=== PATIENT | female | born 1930 | race Hispanic/Latino ===

== ENCOUNTER 2017-11-02 15:17 | Inpatient (IN) | payer MEDICARE ==
[2017-11-02 15:17] VITALS: BMI 21.2
[2017-11-02] MEDS ORDERED: Albuterol-Ipratrop 3 mg / 0.5 (3 ml) UD INH STA ×2 (16:15→17:39)
[2017-11-02] MEDS ORDERED: MethylPREDNISolone 40 mg Vial IVP ONE (16:15)
--- NOTE | 2017-11-02 16:15 | ED PDOC ---
HPI: SOB/CHF/COPD Time Seen by Provider: 11/02/17 15:34 Chief Complaint (Nursing): Shortness Of Breath Chief Complaint (Provider): Shortness of breath History Per: Patient History/Exam Limitations: no limitations Onset/Duration Of Symptoms: Days Current Symptoms Are (Timing): Still Present Quality: Tightness Associated Symptoms: denies: Bloody Cough Additional History Per: Family Additional Complaint(s): 87yo female with no known past medical history, comes to ER for evaluation of shortness of breath, chest tightness and cough, ongoing for the past several days. Patient reports she has not had a doctor's visit in the past 10 years. Per family, patient smokes 3 packs per day, lives alone and has been progressively more weak. The patient denies any weight loss, hemoptysis, fever, or chills. Otherwise, she offers no additional medical complaints. PMD: None provided Past Medical History Reviewed: Historical Data, Nursing Documentation, Vital Signs Vital Signs: Last Vital Signs Temp 97.7 F 11/05/17 12:27 Pulse 90 11/05/17 12:27 Resp 18 11/05/17 12:27 BP 138/74 11/05/17 12:27 Pulse Ox 94 L 11/05/17 12:27 - Medical History PMH: No Chronic Diseases, Diverticulitis - Family History Family History: States: No Known Family Hx, Unknown Family Hx - Living Arrangements Living Arrangements: Alone - Social History Current smoker - smoking cessation education provided: Yes SMOKER/PACKS PER DAY:: 3 Alcohol: None - Home Medications Home Medications: Ambulatory Orders Medication Instructions Recorded Albuterol HFA [Ventolin HFA 90 2 puff IH [id number] #1 inhaler 11/05/17 mcg/actuation (8 g)] Nicotine [Nicotine Patch] 1 each TD DAILY #30 patch.td24 11/05/17 Tiotropium [Spiriva] 18 mcg IH DAILY #30 cap 11/05/17 predniSONE [predniSONE Tab] 5 mg PO DAILY #10 tab 11/05/17 - Allergies Allergies/Adverse Reactions: Allergies Allergy/AdvReac Type Severity Reaction Status Date / Time No Known Allergies Allergy Verified 11/02/17 15:25 Review of Systems ROS Statement: Except As Marked, All Systems Reviewed And Found Negative Constitutional: Negative for: Fever, Chills Cardiovascular: Positive for: Other (chest tightness) Respiratory: Positive for: Cough, Shortness of Breath. Negative for: Hemoptysis Physical Exam - Reviewed Nursing Documentation Reviewed: Yes Vital Signs Reviewed: Yes - Physical Exam Appears: Positive for: Non-toxic Head Exam: Positive for: ATRAUMATIC, NORMAL INSPECTION, NORMOCEPHALIC Skin: Positive for: Normal Color Eye Exam: Positive for: Normal appearance Neck: Positive for: Supple Cardiovascular/Chest: Positive for: Regular Rate, Rhythm, Chest Non Tender Respiratory: Positive for: Decreased Breath Sounds, Accessory Muscle Use (mild) , Wheezing (bilateral), Other (speaking in partial sentences with mild accessory muscle use and retractions.) Pulses-Radial (L): 3+/4+ Pulses-Radial (R): 3+/4+ Gastrointestinal/Abdominal: Positive for: Normal Exam, Soft. Negative for: Tenderness Back: Positive for: Other (kyphosis) Extremity: Positive for: Normal ROM. Negative for: Pedal Edema Neurologic/Psych: Positive for: Alert, Oriented. Negative for: Motor/Sensory Deficits - Laboratory Results Result Diagrams: 11/03/17 05:55 11/03/17 05:55 - ECG O2 Sat by Pulse Oximetry: 95 (RA) Pulse Ox Interpretation: Normal Medical Decision Making Medical Decision Making: Impression: Likely COPD exacerbation, without formal diagnosis to date given lack of primary care Plan: -- Labs -- EKG -- Chest x-ray -- Duoneb 3ml INH -- Solumedrol 60mg IVP labs reviewed clinically unremarkable CXR reveals chronic appearing changes as compared to 2017 CXR Required additional duoneb for mild hypoxia and retractions Admit tele for respiratory distress Hasnt seen PMD in 5+ yrs but family wishes to re-establish with Dr Cooper since leaves close. Call placed to Dr Cooper group and resident informed. Care transferred 6p Scribe Attestation: Documented by Chelle Mcginnis, acting as a scribe for Daryn Snow DO Provider Scribe Attestation: All medical record entries made by the Scribe were at my direction and personally dictated by me. I have reviewed the chart and agree that the record accurately reflects my personal performance of the history, physical exam, medical decision making, and the department course for this patient. I have also personally directed, reviewed, and agree with the discharge instructions and disposition. Disposition - Clinical Impression Clinical Impression: Respiratory failure, COPD exacerbation - Patient ED Disposition Is Patient to be Admitted: Yes - Disposition Disposition Time: 17:52 Condition: GOOD
[2017-11-02] MEDS ORDERED: MethylPREDNISolone 40 mg Vial ONE (16:22)
[2017-11-02] MEDS ORDERED: Albuterol-Ipratrop 3 mg / 0.5 (3 ml) UD ONE ×2 (16:22→18:03)
[2017-11-02 16:54] LABS: BASO % 0.5 % (0.0-2.0); EOS # 0.2 K/uL (0.0-0.7); HEMOGLOBIN 14.5 g/dL (12.0-16.0); LYMPH # 1.6 K/uL (1.0-4.3); LYMPH % 21.6 % (20.0-40.0); MEAN CORPUSCULAR HEMOGLOBIN 29.4 pg (27.0-31.0); MEAN CORPUSCULAR HGB CONC 33.8 g/dL (33.0-37.0); MEAN PLATELET VOLUME 8.3 fl (7.2-11.7); MONO # 0.6 K/uL (0.0-0.8); MONO % 8.2 % (0.0-10.0); NEUT # 5.2 K/uL (1.8-7.0); NEUT % 67.7 % (50.0-75.0); NRBC % 0.1 % (0.0-0.0); RBC 4.93 Mil/uL (3.80-5.20); RED CELL DISTRIBUTION WIDTH 13.6 % (11.5-14.5); WHITE BLOOD COUNT 7.6 K/uL (4.8-10.8)
[2017-11-02 17:04] LABS: ALB/GLOB RATIO 1.2 (1.0-2.1); ALBUMIN 4.2 g/dL (3.5-5.0); ALT/SGPT 22 U/L (9-52); AST/SGOT 22 U/L (14-36); BLOOD UREA NITROGEN 17 mg/dl (7-17); CALCIUM 9.2 mg/dL (8.4-10.2); GFR AFRICAN-AMERICAN > 60; GFR NON-AFRICAN AMERICAN > 60
[2017-11-02 17:15] LABS: B-TYPE NATRIURETIC PEPTIDE 89.6 pg/ml (0-900)
--- NOTE | 2017-11-02 17:49 | RAD ---
Date of service: 11/02/2017 HISTORY: chest pain/ r/o infiltrate COMPARISON: Comparison is made to the previous study dated 05/13/2026 T TECHNIQUE: Chest PA and lateral FINDINGS: LUNGS: No evidence of new infiltrate or consolidation in the lungs PLEURA: No significant pleural effusion identified. No pneumothorax apparent. CARDIOVASCULAR: Normal. OSSEOUS STRUCTURES: Severe diffuse osteoporosis is again noted VISUALIZED UPPER ABDOMEN: Normal. OTHER FINDINGS: None. IMPRESSION: No active disease. Diffuse osteoporosis
--- NOTE | 2017-11-02 18:59 | CP.PCM.HP ---
History of Present Illness - History of Present Illness History of Present Illness: Hx taken from patient and patient's daughter PMD: Dr Duran 87 y/o F with PMhx of diverticulosis, s/p segmental colon resection around 20 years ago and heavy smoker(3 packs/day for more than 30 years) was brought to ER because of worsening SOB with minimal exertion. Patient lives alone and has not seen her PMD in many years. She admits chronic SOB and wet cough but for the past 4-5 days have worsened. Denies fever, CP, palpitations, weakness, dizziness. Patient is not on any medications at home. Also admits diarrhea 3-4 NBNM BM since Yesterday, liquid. Denies abd pain. Denies recent traveling or sick contacts. At the time we examine the patient she "feels much better" she is in not acute distress, speaking in full sentences and eating dinner. ED course PE: Wheezes, O2sat 92 CBC unremarkale CMP: Bicarb 33 rest WNL Tropx1 and ProBnp normal CXR: No active disease. Diffuse osteoporosis Duonebs x2 Solumedrol 60 mg once Nicotine patch placed PMHx: Diverticulitis with segmental colon resection SxHx: As above SHx: Heavy smoker of 3 packs/day for more than 30 years Meds: None Allergies: NKDA Present on Admission - Present on Admission Any Indicators Present on Admission: No Review of Systems - Review of Systems All systems: reviewed and no additional remarkable complaints except (Described on HPI) Past Patient History - Past Medical History & Family History Past Medical History?: Yes - Past Social History Smoking Status: Heavy Smoker > 10 Cigarettes Daily - PULMONARY Hx Respiratory Disorders: Yes Hx Bronchitis: Yes - NEUROLOGICAL Hx Neurological Disorder: No - HEENT Hx HEENT Problems: No - RENAL Hx Chronic Kidney Disease: No - ENDOCRINE/METABOLIC Hx Endocrine Disorders: No - HEMATOLOGICAL/ONCOLOGICAL Hx Blood Disorders: No - INTEGUMENTARY Hx Dermatological Problems: No - GASTROINTESTINAL Hx Diverticulitis: Yes - GENITOURINARY/GYNECOLOGICAL Hx Genitourinary Disorders: No - PSYCHIATRIC Hx Substance Use: No - SURGICAL HISTORY Hx Surgeries: Yes Other/Comment: colon resection - ANESTHESIA Hx Anesthesia: Yes Hx Anesthesia Reactions: No Hx Malignant Hyperthermia: No Meds Allergies/Adverse Reactions: Allergies Allergy/AdvReac Type Severity Reaction Status Date / Time No Known Allergies Allergy Verified 11/02/17 15:25 Physical Exam - Constitutional Appears: Non-toxic, No Acute Distress - Head Exam Head Exam: ATRAUMATIC, NORMAL INSPECTION - Eye Exam Eye Exam: EOMI Pupil Exam: PERRL - ENT Exam ENT Exam: Mucous Membranes Moist, Normal Exam - Respiratory Exam Respiratory Exam: Decreased Breath Sounds, Wheezes (Scattered), NORMAL BREATHING PATTERN. absent: Rales, Respiratory Distress - Cardiovascular Exam Cardiovascular Exam: Irregular Rhythm, +S1, +S2. absent: Gallop - GI/Abdominal Exam GI & Abdominal Exam: Normal Bowel Sounds. absent: Distended, Firm, Guarding, Tenderness - Extremities Exam Extremities exam: Negative for: calf tenderness - Back Exam Back exam: absent: CVA tenderness (L), CVA tenderness (R) - Neurological Exam Neurological exam: Alert, Normal Gait, Oriented x3 - Psychiatric Exam Psychiatric exam: Normal Affect, Normal Mood - Skin Skin Exam: Intact, Normal Color, Warm Results - Vital Signs Recent Vital Signs: Last Vital Signs Temp 99.3 F 11/02/17 15:25 Pulse 90 11/02/17 15:25 Resp 20 11/02/17 15:30 BP 153/89 H 11/02/17 15:25 Pulse Ox 95 11/02/17 17:52 - Labs Result Diagrams: 11/02/17 16:47 11/02/17 16:47 Labs: Laboratory Results - last 24 hr 11/02/17 11/02/17 16:47 16:47 WBC 7.6 RBC 4.93 Hgb 14.5 Hct 42.9 MCV 87.0 MCH 29.4 MCHC 33.8 RDW 13.6 Plt Count 251 MPV 8.3 Neut % (Auto) 67.7 Lymph % (Auto) 21.6 [place] % (Auto) 8.2 Eos % (Auto) 2.0 Baso % (Auto) 0.5 Neut # (Auto) 5.2 Lymph # (Auto) 1.6 [place] # (Auto) 0.6 Eos # (Auto) 0.2 Baso # (Auto) 0.0 Sodium 139 Potassium 3.9 Chloride 98 Carbon Dioxide 33 H Anion Gap 12 BUN 17 Creatinine 0.7 Est GFR ( Amer) > 60 Est GFR (Non-Af Amer) > 60 Random Glucose 99 Calcium 9.2 Total Bilirubin 0.5 AST 22 ALT 22 Alkaline Phosphatase 69 Troponin I < 0.0120 NT-Pro-B Natriuret Pep 89.6 Total Protein 7.5 Albumin 4.2 Globulin 3.4 Albumin/Globulin Ratio 1.2 Assessment & Plan - Assessment and Plan (Free Text) Assessment: 87 y/o F heavy smoker admitted for COPD exacerbation COPD exacerbation Suspected Improved since arrival Heavy smoker Hx of Chronic SOB and Cough Not on any home treatment Afebrile, no white count CXR neg for acute disease S/P Duonebs x2 and Solumedrol 60 mg IV at ER Start Prednisone 40 mg daily for 5 days Duonebs q4h PRN O2 PRN Will need f/u with Pulmonology as 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
[2017-11-02] MEDS ORDERED: Albuterol-Ipratrop 3 mg / 0.5 (3 ml) UD INH PRN ×2 (19:08→19:12)
[2017-11-03 06:57] LABS: HEMOGLOBIN 14.1 g/dL (12.0-16.0); MEAN CELL VOLUME 87.9 fl (81.0-99.0); MEAN CORPUSCULAR HEMOGLOBIN 29.7 pg (27.0-31.0); MEAN CORPUSCULAR HGB CONC 33.7 g/dL (33.0-37.0); RBC 4.76 Mil/uL (3.80-5.20); RED CELL DISTRIBUTION WIDTH 13.9 % (11.5-14.5); WHITE BLOOD COUNT 12.9 K/uL (4.8-10.8)
[2017-11-03 07:19] LABS: BLOOD UREA NITROGEN 23 mg/dl (7-17); CALCIUM 8.8 mg/dL (8.4-10.2); GFR AFRICAN-AMERICAN > 60; GFR NON-AFRICAN AMERICAN > 60
[2017-11-03] MEDS ORDERED: Albuterol 0.083% Inhal Sol (2.5 mg/3 mL) UD INH PRN (09:25)
--- NOTE | 2017-11-03 09:36 | CP.PCM.CON ---
History of Present Illness - History of Present Illness History of Present Illness: 87 year old current cigarette smoker admitted with apparent SOB/wheeze, productive cough, CXR w/o any infiltrate or effusion. Will initiate treatment for acute exacerbation of chronic bronchitis with PO amoxicillin/clavulanate, IV hydrocortisone, scheduled albuterol/ipratropium with PRN albuterol, scheduled guaifenesin and GI prophylaxis with pantoprazole. Plan for outpatient PFT. Needs tobacco counselling. Sputum for culture with (saline induced if necessary). Will see in AM tomorrow. 11/04/2017: This 87-year-old female who is a current every day cigarette smoker presented to the hospital with approximately 4-5 days history of increasing shortness of breath. She describes the sensation as a heaviness in her chest but denies pain. She denies fever, chills or sweats. She did have occasional cough but denies any sputum production. She denies ever having hemoptysis. On further questioning her symptomatology probably has been progressing slowly for significantly longer period of time. She takes no medications at home. She denies any prior episode of pneumonia or tuberculosis. She sleeps poorly at night but she claims this is a chronic problem. She denies nocturnal awakenings with cough or shortness of breath. A history of dyspnea on exertion does extend back approximately 1-1/2 years when questioned in more detail. She does admit to having some difficulty with breathing and chest discomfort when eating meals. She denies any weight loss. She has been smoking heavily for greater than 50 years. Review of Systems - Review of Systems All systems: reviewed and no additional remarkable complaints except - Constitutional Constitutional: Fatigue - EENT Nose/Mouth/Throat: Nasal Congestion - Respiratory Respiratory: Dyspnea, Wheezing Past Patient History - Past Medical History & Family History Past Medical History?: Yes - Past Social History Smoking Status: Heavy Smoker > 10 Cigarettes Daily Chewing Tobacco Use: No Cigar Use: No Alcohol: None Drugs: Denies Home Situation {Lives}: Alone - CARDIAC Hx Cardiac Disorders: No - PULMONARY Hx Bronchitis: Yes - NEUROLOGICAL Hx Neurological Disorder: No - HEENT Hx HEENT Problems: No - RENAL Hx Chronic Kidney Disease: No - ENDOCRINE/METABOLIC Hx Endocrine Disorders: No - HEMATOLOGICAL/ONCOLOGICAL Hx Blood Disorders: No - INTEGUMENTARY Hx Dermatological Problems: No - MUSCULOSKELETAL/RHEUMATOLOGICAL Hx Musculoskeletal Disorders: No Hx Falls: No - GASTROINTESTINAL Hx Diverticulitis: Yes Other/Comment: bloated feeling after meals - GENITOURINARY/GYNECOLOGICAL Hx Genitourinary Disorders: No - PSYCHIATRIC Hx Psychophysiologic Disorder: No Hx Substance Use: No - SURGICAL HISTORY Hx Surgeries: Yes Other/Comment: colon resection more than 30 years ago, unsure of reason - ANESTHESIA Hx Anesthesia: Yes Hx Anesthesia Reactions: No Hx Malignant Hyperthermia: No Meds Allergies/Adverse Reactions: Allergies Allergy/AdvReac Type Severity Reaction Status Date / Time No Known Allergies Allergy Verified 11/02/17 15:25 - Medications Medications: Current Medications Albuterol Sulfate (Albuterol 0.083% Inhal [place]y (2.5 Mg/3 Ml) Ud) 2.5 mg INH RQ4 PRN PRN Reason: Shortness of Breath Albuterol/Ipratropium (Duoneb 3 Mg/0.5 Mg (3 Ml) Ud) 3 ml INH RQID [place] Amoxicillin/Clavulanate Potassium (Augmentin 875 Mg-125 Mg Tab) 1 tab PO Q12 [place] PRN Reason: Protocol Enoxaparin Sodium (Lovenox) 40 mg SC HS [place] PRN Reason: Protocol Nicotine (Nicoderm Cq) 1 patch TD DAILY [place] Pantoprazole Sodium (Protonix Ec Tab) 40 mg PO DAILY [facility] Prednisone (Prednisone Tab) 40 mg PO DAILY [facility] Stop: 11/08/17 09:01 Physical Exam - Additional Findings Additional findings: Thin, elderly female, well-developed, in no acute distress. Seated on the edge of the bed with no dependent edema. No cyanosis. No calf tenderness. Peripheral pulses are diminished but present in all 4 extremities. No palpable venous cords. No ecchymosis or rash. No palpable lymphadenopathy. Pharynx is pink and mucous membranes are moist. No exudate. Neck is supple and trachea is midline. No neck vein distention or carotid bruit. No palpable thyromegaly. Conjunctivae are pink and there is no scleral icterus. Nasal passages are patent bilaterally. No bleeding or exudate. Increased AP diameter of the thorax is noted. Kyphosis of the dorsal spine is significant. Chest is hyperresonant to percussion bilaterally. Normal vocal tactile fremitus. Breath sounds are diminished bilaterally. No audible wheezing. Few scattered dry rales in the lung bases posteriorly. Occasional sonorous rhonchi. No rub. Heart sounds are distant and the rhythm is regular. Abdomen is soft and nontender with normal bowel sounds. Results - Vital Signs Recent Vital Signs: Last Vital Signs Temp 97.9 F 11/03/17 08:00 Pulse 80 11/03/17 08:00 Resp 20 11/03/17 08:00 BP 113/66 11/03/17 08:00 Pulse Ox 98 11/03/17 08:00 - Labs Result Diagrams: 11/03/17 05:55 11/03/17 05:55 Labs: Laboratory Results - last 24 hr 11/02/17 11/02/17 11/03/17 16:47 16:47 05:55 WBC 7.6 12.9 H D RBC 4.93 4.76 Hgb 14.5 14.1 Hct 42.9 41.8 MCV 87.0 87.9 MCH 29.4 29.7 MCHC 33.8 33.7 RDW 13.6 13.9 Plt Count 251 258 MPV 8.3 Neut % (Auto) 67.7 Lymph % (Auto) 21.6 [place] % (Auto) 8.2 Eos % (Auto) 2.0 Baso % (Auto) 0.5 Neut # (Auto) 5.2 Lymph # (Auto) 1.6 [place] # (Auto) 0.6 Eos # (Auto) 0.2 Baso # (Auto) 0.0 Sodium 139 Potassium 3.9 Chloride 98 Carbon Dioxide 33 H Anion Gap 12 BUN 17 Creatinine 0.7 Est GFR ( Amer) > 60 Est GFR (Non-Af Amer) > 60 Random Glucose 99 Calcium 9.2 Total Bilirubin 0.5 AST 22 ALT 22 Alkaline Phosphatase 69 Troponin I < 0.0120 NT-Pro-B Natriuret Pep 89.6 Total Protein 7.5 Albumin 4.2 Globulin 3.4 Albumin/Globulin Ratio 1.2 11/03/17 05:55 WBC RBC Hgb Hct MCV MCH MCHC RDW Plt Count MPV Neut % (Auto) Lymph % (Auto) [place] % (Auto) Eos % (Auto) Baso % (Auto) Neut # (Auto) Lymph # (Auto) [place] # (Auto) Eos # (Auto) Baso # (Auto) Sodium 137 Potassium 4.8 Chloride 98 Carbon Dioxide 27 Anion Gap 17 BUN 23 H Creatinine 0.6 L Est GFR ( Amer) > 60 Est GFR (Non-Af Amer) > 60 Random Glucose 154 H Calcium 8.8 Total Bilirubin AST ALT Alkaline Phosphatase Troponin I NT-Pro-B Natriuret Pep Total Protein Albumin Globulin Albumin/Globulin Ratio Assessment & Plan (1) Acute exacerbation of chronic bronchitis Status: Acute Priority: High (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 Agree with current management. Would place on long-acting muscarinic agents in the form of Spiriva tomorrow morning. Reduce prednisone dose to 30 mg by mouth daily tomorrow and reduce by 5 mg every third day until finished. Short acting beta agonist rescue inhaler for home use. Apparently does not require oxygen supplementation. Needs further smoking cessation counseling. Pulmonary function study to be done as an outpatient. - Date & Time Date: 11/03/17 Time: 09:36
[2017-11-03] MEDS ORDERED: Hydrocortisone- 100 MG in Sodium Chloride 0.9% 100 ML IV SCH (09:45)
--- NOTE | 2017-11-03 10:07 | CP.PCM.PN ---
Subjective - Date & Time of Evaluation Date of Evaluation: 11/03/17 Time of Evaluation: 08:30 - Subjective Subjective: Patient evaluated and examined in AM. NAD. No acute events overnight. Patient comfortably sitting in chair and eating breakfast. No SOB but still dry non productive cough. Denies CP, headache, dizziness, N/V/D. To be seen by Dr. Ramos. Objective - Vital Signs/Intake and Output Vital Signs (last 24 hours): Temp Pulse Resp BP Pulse Ox 97.9 F 80 20 113/66 98 11/03/17 08:00 11/03/17 08:00 11/03/17 08:00 11/03/17 08:00 11/03/17 08:00 - Medications Medications: Current Medications Albuterol Sulfate (Albuterol 0.083% Inhal Anahy (2.5 Mg/3 Ml) Ud) 2.5 mg INH RQ4 PRN PRN Reason: Shortness of Breath Albuterol/Ipratropium (Duoneb 3 Mg/0.5 Mg (3 Ml) Ud) 3 ml INH RQID [place] Amoxicillin/Clavulanate Potassium (Augmentin 875 Mg-125 Mg Tab) 1 tab PO Q12 [place] PRN Reason: Protocol Enoxaparin Sodium (Lovenox) 40 mg SC HS [place] PRN Reason: Protocol Guaifenesin (Mucinex La) 600 mg PO Q12 [place] Hydrocortisone Sodium Succinate (Solu-Cortef) 100 mg IV Q8H [place] Nicotine (Nicoderm Cq) 1 patch TD DAILY [place] Pantoprazole Sodium (Protonix Ec Tab) 40 mg PO DAILY [place] - Labs Labs: 11/03/17 05:55 11/03/17 05:55 - Constitutional Appears: Well, Non-toxic, No Acute Distress - Head Exam Head Exam: ATRAUMATIC, NORMAL INSPECTION, NORMOCEPHALIC - Eye Exam Eye Exam: EOMI, Normal appearance, PERRL Pupil Exam: NORMAL ACCOMODATION, PERRL - ENT Exam ENT Exam: Mucous Membranes Moist - Neck Exam Neck Exam: Full ROM - Respiratory Exam Respiratory Exam: Clear to Ausculation Bilateral, NORMAL BREATHING PATTERN Additional comments: Faint wheezing. - Cardiovascular Exam Cardiovascular Exam: REGULAR RHYTHM, +S1, +S2. absent: Murmur - GI/Abdominal Exam GI & Abdominal Exam: Soft, Normal Bowel Sounds - Extremities Exam Extremities Exam: Full ROM. absent: Tenderness - Back Exam Back Exam: absent: CVA tenderness (L), CVA tenderness (R) - Neurological Exam Neurological Exam: Alert, Awake, Oriented x3 - Psychiatric Exam Psychiatric exam: Normal Affect, Normal Mood - Skin Skin Exam: Dry, Intact, Normal Color Assessment and Plan - Assessment and Plan (Free Text) Assessment: 87 y/o F heavy smoker admitted for COPD exacerbation Plan: Acute exacerbation of COPD/chronic bronchitis - SOB improving, Cough still persistent - Heavy smoker, Not on any home treatment - Afebrile - CXR: Negative for acute disease - S/P Duonebs x2 and Solumedrol 60 mg IV at ER - Start Prednisone 40 mg daily for 5 days - Duonebs q4h PRN - O2 PRN - As per Dr. Ramos: Acute exacerbation of chronic bronchitis with PO amoxicillin /clavulanate, IV hydrocortisone, scheduled albuterol/ipratropium with PRN albuterol, scheduled guaifenesin and GI prophylaxis with pantoprazole. - 6MWT ordered, results pending. - Cardiology consult: Dr. Hart to see pt tomorrow. Tobacco abuse - Nicotine patch daily - Assess wiliness to quit at discharge Diarrhea - Improving - No electrolytes imbalance - Regular diet - Monitor for now DVT prophylaxis - Lovenox 40 mg daily
[2017-11-03] MEDS: Amoxicillin-Clav 875-125 mg Tab PO SCH ×2 (10:19→21:07)
[2017-11-03] MEDS: guaiFENesin 600 mg ER Tab PO SCH ×2 (10:20→21:08)
[2017-11-03] MEDS: Pantoprazole 40 mg EC Tab PO SCH (10:24)
--- NOTE | 2017-11-03 13:53 | CARD ---
APPROVED REPORT Date of service: 11/02/2017 EKG Measurement Heart [id number] 130P80 [id number] <Conclusion> Sinus rhythm with premature atrial complexes Nonspecific ST and T wave abnormality Abnormal ECG
[2017-11-03] MEDS: Albuterol-Ipratrop 3 mg / 0.5 (3 ml) UD INH SCH ×2 (15:26→19:06)
[2017-11-03] MEDS: Enoxaparin 40 mg Syringe SC SCH (21:08)
[2017-11-04] MEDS: Albuterol-Ipratrop 3 mg / 0.5 (3 ml) UD INH SCH ×4 (08:06→19:15)
--- NOTE | 2017-11-04 08:22 | CP.PCM.PN ---
Subjective - Date & Time of Evaluation Date of Evaluation: 11/04/17 Time of Evaluation: 08:10 - Subjective Subjective: Patient seen and examined this morning at bedside. There are no acute events overnight, NAD. Patient sitting up and eating breakfast. Patient denies any SOB. Patient denies headaches, chest pain, SOB, abdominal pain, nausea, vomiting, diarrhea, dysuria, fever. Patient had 6 minute walk test yesterday 94 % pre-walk and saturation 93% after walk. Objective - Vital Signs/Intake and Output Vital Signs (last 24 hours): Temp Pulse Resp BP Pulse Ox 98.2 F 85 18 167/79 H 91 L 11/04/17 08:00 11/04/17 08:00 11/04/17 08:00 11/04/17 08:00 11/04/17 08:00 - Medications Medications: Current Medications Albuterol Sulfate (Albuterol 0.083% Inhal Anahy (2.5 Mg/3 Ml) Ud) 2.5 mg INH RQ4 PRN PRN Reason: Shortness of Breath Albuterol/Ipratropium (Duoneb 3 Mg/0.5 Mg (3 Ml) Ud) 3 ml INH RQID [place] Last Admin: 11/04/17 08:06 Dose: 3 ml Amoxicillin/Clavulanate Potassium (Augmentin 875 Mg-125 Mg Tab) 1 tab PO Q12 [place] PRN Reason: Protocol Last Admin: 11/03/17 21:07 Dose: 1 tab Enoxaparin Sodium (Lovenox) 40 mg SC HS [place] PRN Reason: Protocol Last Admin: 11/03/17 21:08 Dose: 40 mg Guaifenesin (Mucinex La) 600 mg PO Q12 [place] Last Admin: 11/03/17 21:08 Dose: 600 mg Hydrocortisone Sodium Succinate (Solu-Cortef) 100 mg IV Q8H [facility] Last Admin: 11/04/17 01:38 Dose: 100 mg Nicotine (Nicoderm Cq) 1 patch TD DAILY [facility] Last Admin: 11/03/17 10:20 Dose: 1 patch Pantoprazole Sodium (Protonix Ec Tab) 40 mg PO DAILY [facility] Last Admin: 11/03/17 10:24 Dose: 40 mg - Labs Labs: 11/03/17 05:55 11/03/17 05:55 - Constitutional Appears: Non-toxic, No Acute Distress - Head Exam Head Exam: ATRAUMATIC, NORMAL INSPECTION, NORMOCEPHALIC - Eye Exam Eye Exam: Normal appearance - ENT Exam ENT Exam: Mucous Membranes Moist - Neck Exam Neck Exam: Full ROM. absent: Tenderness - Respiratory Exam Respiratory Exam: Decreased Breath Sounds. absent: Accessory Muscle Use, Rales , Rhonchi, Wheezes, Respiratory Distress - Cardiovascular Exam Cardiovascular Exam: REGULAR RHYTHM. absent: Tachycardia - GI/Abdominal Exam GI & Abdominal Exam: Soft, Normal Bowel Sounds. absent: Tenderness - Extremities Exam Extremities Exam: absent: Calf Tenderness - Back Exam Additional comments: kyphosis - Neurological Exam Neurological Exam: Alert, Awake, Oriented x3 - Skin Skin Exam: Dry, Intact, Normal Color Assessment and Plan - Assessment and Plan (Free Text) Assessment: 87 y/o woman w/ pmh of heavy smoking admitted for COPD exacerbation Plan: Acute exacerbation of COPD/chronic bronchitis - SOB improving, Cough still persistent but non-productive - Heavy smoker, Not on any home treatment - Afebrile - CXR: Negative for acute disease - c/w duonebs QID [place] - c/w albuterol Q4 prn - c/w hydrocortisone 100 mg IV Q8h - c/w augmentin 1 tab PO Q12h day 2 - c/w guaifenesin 600 mg PO Q12h - c/w protonix 40 mg PO daily - O2 PRN - pulmonology, Dr. Ramos, recommendations appreciated - 6MWT: O2 94% prewalk, 93% post-walk - monitor for acute changes Tobacco abuse - Nicotine patch daily - Assess wiliness to quit at discharge Diarrhea - Improving - No electrolytes imbalance - Regular diet - Monitor for now DVT prophylaxis - Lovenox 40 mg daily Social work referral ordered for medication assistance
[2017-11-04] MEDS: guaiFENesin 600 mg ER Tab PO SCH ×2 (09:27→21:34)
[2017-11-04] MEDS: Amoxicillin-Clav 875-125 mg Tab PO SCH ×2 (09:27→21:33)
[2017-11-04] MEDS: Pantoprazole 40 mg EC Tab PO SCH (09:28)
[2017-11-04] MEDS: Enoxaparin 40 mg Syringe SC SCH (21:34)
[2017-11-05 00:33] VITALS: RESP 18
[2017-11-05] MEDS: Albuterol-Ipratrop 3 mg / 0.5 (3 ml) UD INH SCH (08:18)
--- NOTE | 2017-11-05 08:27 | CP.PCM.PN ---
Subjective - Date & Time of Evaluation Date of Evaluation: 11/05/17 Time of Evaluation: 07:15 Objective - Vital Signs/Intake and Output Vital Signs (last 24 hours): Temp Pulse Resp BP Pulse Ox 97.4 F L 72 18 128/74 99 11/05/17 07:53 11/05/17 07:53 11/05/17 07:53 11/05/17 07:53 11/05/17 07:53 - Medications Medications: Current Medications Albuterol Sulfate (Albuterol 0.083% Inhal Anahy (2.5 Mg/3 Ml) Ud) 2.5 mg INH RQ4 PRN PRN Reason: Shortness of Breath Albuterol/Ipratropium (Duoneb 3 Mg/0.5 Mg (3 Ml) Ud) 3 ml INH RQID DELORES Last Admin: 11/05/17 08:18 Dose: 3 ml Amoxicillin/Clavulanate Potassium (Augmentin 875 Mg-125 Mg Tab) 1 tab PO Q12 DELORES PRN Reason: Protocol Last Admin: 11/04/17 21:33 Dose: 1 tab Enoxaparin Sodium (Lovenox) 40 mg SC HS DELORES PRN Reason: Protocol Last Admin: 11/04/17 21:34 Dose: 40 mg Guaifenesin (Mucinex La) 600 mg PO Q12 DELORES Last Admin: 11/04/17 21:34 Dose: 600 mg Hydrocortisone Sodium Succinate (Solu-Cortef) 100 mg IV Q8H DELORES Last Admin: 11/05/17 01:17 Dose: 100 mg Nicotine (Nicoderm Cq) 1 patch TD DAILY [facility]OR[facility] Last Admin: 11/04/17 09:28 Dose: 1 patch Pantoprazole Sodium (Protonix Ec Tab) 40 mg PO DAILY [facility] Last Admin: 11/04/17 09:28 Dose: 40 mg - Labs Labs: 11/03/17 05:55 11/03/17 05:55
[2017-11-05] MEDS: Amoxicillin-Clav 875-125 mg Tab PO SCH (08:40)
[2017-11-05] MEDS: guaiFENesin 600 mg ER Tab PO SCH (08:40)
[2017-11-05] MEDS ORDERED: Tiotropium 18 mcg Cap For Inhalation INH SCH (09:00)
[2017-11-05] MEDS: Pantoprazole 40 mg EC Tab PO SCH (09:49)
--- NOTE | 2017-11-05 10:31 | CP.PCM.PN ---
Subjective - Date & Time of Evaluation Date of Evaluation: 11/05/17 Time of Evaluation: 10:31 - Subjective Subjective: Has done well with current regimen. States she is breathing comfortably. No audible wheezes on exam. Rare basal dry rales. May be discharged to home. Continue Spiriva 18mcg inhaled once daily. Rescue inhaler, generic albuterol q4h prn. Prednisone 5MG tabs #10, start tomorrow-4 tabs, 3 tabs on Sunday, 2 on , one on Sunday. OTC nicotine replacement patch 21MG daily for 4 weeks, then 14MG for 4 weeks, then 7MG for 4 weeks. Thank you. Objective - Vital Signs/Intake and Output Vital Signs (last 24 hours): Temp Pulse Resp BP Pulse Ox 97.4 F L 72 18 128/74 99 11/05/17 07:53 11/05/17 07:53 11/05/17 07:53 11/05/17 07:53 11/05/17 07:53 - Medications Medications: Current Medications Albuterol Sulfate (Albuterol 0.083% Inhal Anahy (2.5 Mg/3 Ml) Ud) 2.5 mg INH RQ4 PRN PRN Reason: Shortness of Breath Amoxicillin/Clavulanate Potassium (Augmentin 875 Mg-125 Mg Tab) 1 tab PO Q12 DELORES PRN Reason: Protocol Last Admin: 11/05/17 08:40 Dose: 1 tab Enoxaparin Sodium (Lovenox) 40 mg SC HS DELORES PRN Reason: Protocol Last Admin: 11/04/17 21:34 Dose: 40 mg Guaifenesin (Mucinex La) 600 mg PO Q12 DELORES Last Admin: 11/05/17 08:40 Dose: 600 mg Hydrocortisone Sodium Succinate (Solu-Cortef) 100 mg IM Q12H [facility] Nicotine (Nicoderm Cq) 1 patch TD DAILY [facility]ORES Last Admin: 11/05/17 08:40 Dose: 1 patch Pantoprazole Sodium (Protonix Ec Tab) 40 mg PO DAILY [facility] Last Admin: 11/05/17 09:49 Dose: 40 mg Tiotropium Paicines (Spiriva) 18 mcg INH DAILY [facility]ORES Last Admin: 11/05/17 09:49 Dose: 18 mcg - Labs Labs: 11/03/17 05:55 07/21/18 05:55 Assessment and Plan (1) Acute exacerbation of chronic bronchitis Status: Acute (2) Kyphosis of cervicothoracic region Status: Chronic
[2017-11-05] MEDS ORDERED: Hydrocortisone- 100 MG in Sodium Chloride 0.9% 100 ML IV ONE (10:51)
--- NOTE | 2017-11-05 12:15 | CP.PCM.DIS ---
<Matt Barahona - Last Filed: 11/05/17 13:49> Provider - Provider Date of Admission: 11/02/17 17:41 Attending physician: Ronnie Mejias MD Time Spent in preparation of Discharge (in minutes): 15 Diagnosis - Discharge Diagnosis (1) Acute exacerbation of chronic bronchitis Status: Acute Priority: High (2) COPD exacerbation Status: Acute Hospital Course - Lab Results Lab Results: Most Recent Lab Values WBC 12.9 K/uL (4.8-10.8) H D 11/03/17 05:55 RBC 4.76 Mil/uL (3.80-5.20) 11/03/17 05:55 Hgb 14.1 g/dL (12.0-16.0) 11/03/17 05:55 Hct 41.8 % (34.0-47.0) 11/03/17 05:55 MCV 87.9 fl (81.0-99.0) 11/03/17 05:55 MCH 29.7 pg (27.0-31.0) 11/03/17 05:55 MCHC 33.7 g/dL (33.0-37.0) 11/03/17 05:55 RDW 13.9 % (11.5-14.5) 11/03/17 05:55 Plt Count 258 K/uL (130-400) 11/03/17 05:55 MPV 8.3 fl (7.2-11.7) 11/02/17 16:47 Neut % (Auto) 67.7 % (50.0-75.0) 11/02/17 16:47 Lymph % (Auto) 21.6 % (20.0-40.0) 11/02/17 16:47 Ross % (Auto) 8.2 % (0.0-10.0) 11/02/17 16:47 Eos % (Auto) 2.0 % (0.0-4.0) 11/02/17 16:47 Baso % (Auto) 0.5 % (0.0-2.0) 11/02/17 16:47 Neut # (Auto) 5.2 K/uL (1.8-7.0) 11/02/17 16:47 Lymph # (Auto) 1.6 K/uL (1.0-4.3) 11/02/17 16:47 Ross # (Auto) 0.6 K/uL (0.0-0.8) 11/02/17 16:47 Eos # (Auto) 0.2 K/uL (0.0-0.7) 11/02/17 16:47 Baso # (Auto) 0.0 K/uL (0.0-0.2) 11/02/17 16:47 Sodium 137 mmol/l (132-148) 11/03/17 05:55 Potassium 4.8 MMOL/L (3.6-5.0) 11/03/17 05:55 Chloride 98 mmol/L (98-107) 11/03/17 05:55 Carbon Dioxide 27 mmol/L (22-30) 11/03/17 05:55 Anion Gap 17 (10-20) 11/03/17 05:55 BUN 23 mg/dl (7-17) H 11/03/17 05:55 Creatinine 0.6 mg/dl (0.7-1.2) L 11/03/17 05:55 Est GFR ( Amer) > 60 11/03/17 05:55 Est GFR (Non-Af Amer) > 60 11/03/17 05:55 Random Glucose 154 mg/dL (65-105) H 11/03/17 05:55 Calcium 8.8 mg/dL (8.4-10.2) 11/03/17 05:55 Total Bilirubin 0.5 mg/dl (0.2-1.3) 11/02/17 16:47 AST 22 U/L (14-36) 11/02/17 16:47 ALT 22 U/L (9-52) 11/02/17 16:47 Alkaline Phosphatase 69 U/L (38-126) 11/02/17 16:47 Troponin I < 0.0120 ng/mL (0.00-0.120) 11/02/17 16:47 NT-Pro-B Natriuret Pep 89.6 pg/ml (0-900) 11/02/17 16:47 Total Protein 7.5 G/DL (6.3-8.2) 11/02/17 16:47 Albumin 4.2 g/dL (3.5-5.0) 11/02/17 16:47 Globulin 3.4 gm/dL (2.2-3.9) 11/02/17 16:47 Albumin/Globulin Ratio 1.2 (1.0-2.1) 11/02/17 16:47 - Hospital Course Hospital Course: 87 y/o F with PMhx of diverticulosis, s/p segmental colon resection around 20 years ago and heavy smoker(3 packs/day for more than 30 years) was brought to ER because of worsening SOB with minimal exertion. Patient evaluated in ED. EKG , CXR, CBC, CMP and Troponines done were unremarkable. Patient diagnosed with acute exacerbation of bronchitis/COPD. Patient improved with prednisone, solumedrol, spiriva, duoneb and O2. On 6MWT patient desaturated to 93%. Cleared by Highway Technician (Dr. Ramos). Outpatient F/U recommended with Dr. Cooper and Dr. Ramos. Smoking cessation counseling done. Discharge Medications - Albuterol HFA [Ventolin HFA 90 mcg/actuation (8 g)] 2 puff IH [id number] #1 inhaler - Nicotine [Nicotine Patch] 1 each TD DAILY #30 patch.td24 - predniSONE [predniSONE Tab] 5 mg PO DAILY #10 tab - Tiotropium [Spiriva] 18 mcg IH DAILY #30 cap Discharge Exam - Head Exam Head Exam: ATRAUMATIC, NORMAL INSPECTION, NORMOCEPHALIC - Eye Exam Eye Exam: EOMI, Normal appearance, PERRL Pupil Exam: NORMAL ACCOMODATION, PERRL - ENT Exam ENT Exam: Mucous Membranes Moist - Respiratory Exam Respiratory Exam: Clear to PA & Lateral, UNREMARKABLE. absent: Rales, Rhonchi, Wheezes, Respiratory Distress - Cardiovascular Exam Cardiovascular Exam: REGULAR RHYTHM, +S1, +S2. absent: Systolic Murmur - GI/Abdominal Exam GI & Abdominal Exam: Normal Bowel Sounds - Back Exam Back exam: absent: CVA tenderness (L), CVA tenderness (R) - Neurological Exam Neurological exam: Alert, Oriented x3 - Psychiatric Exam Psychiatric exam: Normal Affect, Normal Mood - Skin Skin Exam: Dry, Intact, Normal Color Discharge Plan - Discharge Medications Prescriptions: Albuterol HFA [Ventolin HFA 90 mcg/actuation (8 g)] 2 puff IH [id number] #1 inhaler Nicotine [Nicotine Patch] 1 each TD DAILY #30 patch.td24 predniSONE [predniSONE Tab] 5 mg PO DAILY #10 tab Tiotropium [Spiriva] 18 mcg IH DAILY #30 cap - Follow Up Plan Condition: GOOD Disposition: HOME/ ROUTINE Patient education suggested?: Yes Instructions: Acute Bronchitis, Adult (DC), Exacerbation of COPD (DC) Additional Instructions: follow up with in 1 week Referrals: Boone Ramos MD [Staff Provider] - Jean Cooper MD [Staff Provider] - <Ronnie Mejias - Last Filed: 11/07/17 06:54> Provider - Provider Date of Admission: 11/02/17 17:41 Attending physician: Ronnie Mejias MD Hospital Course - Lab Results Lab Results: Most Recent Lab Values WBC 12.9 K/uL (4.8-10.8) H D 11/03/17 05:55 RBC 4.76 Mil/uL (3.80-5.20) 11/03/17 05:55 Hgb 14.1 g/dL (12.0-16.0) 11/03/17 05:55 Hct 41.8 % (34.0-47.0) 11/03/17 05:55 MCV 87.9 fl (81.0-99.0) 11/03/17 05:55 MCH 29.7 pg (27.0-31.0) 11/03/17 05:55 MCHC 33.7 g/dL (33.0-37.0) 11/03/17 05:55 RDW 13.9 % (11.5-14.5) 11/03/17 05:55 Plt Count 258 K/uL (130-400) 11/03/17 05:55 MPV 8.3 fl (7.2-11.7) 11/02/17 16:47 Neut % (Auto) 67.7 % (50.0-75.0) 11/02/17 16:47 Lymph % (Auto) 21.6 % (20.0-40.0) 11/02/17 16:47 Ross % (Auto) 8.2 % (0.0-10.0) 11/02/17 16:47 Eos % (Auto) 2.0 % (0.0-4.0) 11/02/17 16:47 Baso % (Auto) 0.5 % (0.0-2.0) 11/02/17 16:47 Neut # (Auto) 5.2 K/uL (1.8-7.0) 11/02/17 16:47 Lymph # (Auto) 1.6 K/uL (1.0-4.3) 11/02/17 16:47 Ross # (Auto) 0.6 K/uL (0.0-0.8) 11/02/17 16:47 Eos # (Auto) 0.2 K/uL (0.0-0.7) 11/02/17 16:47 Baso # (Auto) 0.0 K/uL (0.0-0.2) 11/02/17 16:47 Sodium 137 mmol/l (132-148) 11/03/17 05:55 Potassium 4.8 MMOL/L (3.6-5.0) 11/03/17 05:55 Chloride 98 mmol/L (98-107) 11/03/17 05:55 Carbon Dioxide 27 mmol/L (22-30) 11/03/17 05:55 Anion Gap 17 (10-20) 11/03/17 05:55 BUN 23 mg/dl (7-17) H 11/03/17 05:55 Creatinine 0.6 mg/dl (0.7-1.2) L 11/03/17 05:55 Est GFR ( Amer) > 60 11/03/17 05:55 Est GFR (Non-Af Amer) > 60 11/03/17 05:55 Random Glucose 154 mg/dL (65-105) H 11/03/17 05:55 Calcium 8.8 mg/dL (8.4-10.2) 11/03/17 05:55 Total Bilirubin 0.5 mg/dl (0.2-1.3) 11/02/17 16:47 AST 22 U/L (14-36) 11/02/17 16:47 ALT 22 U/L (9-52) 11/02/17 16:47 Alkaline Phosphatase 69 U/L (38-126) 11/02/17 16:47 Troponin I < 0.0120 ng/mL (0.00-0.120) 11/02/17 16:47 NT-Pro-B Natriuret Pep 89.6 pg/ml (0-900) 11/02/17 16:47 Total Protein 7.5 G/DL (6.3-8.2) 11/02/17 16:47 Albumin 4.2 g/dL (3.5-5.0) 11/02/17 16:47 Globulin 3.4 gm/dL (2.2-3.9) 11/02/17 16:47 Albumin/Globulin Ratio 1.2 (1.0-2.1) 11/02/17 16:47 Rlfyd-2-Hcohjpinysh 131 mg/dL (83-199) 11/03/17 05:55 Attending/Attestation - Attestation I have personally seen and examined this patient.: Yes I have fully participated in the care of the patient.: Yes I have reviewed all pertinent clinical information, including history, physical exam and plan: Yes
[2017-11-05 12:27] VITALS: BP 138/74; PULSE 90; TEMP 97.7
[2017-11-06 14:42] VITALS: O2SAT 95
== END 2017-11-05 15:15 | disposition home or self-care (01) | DRG 190 ==
LOC: H.ER 15:17 → H.ERHOLD 17:41 → H.TEL 20:52
PROVIDERS: ADMIT Family Medicine; ATTEND Family Medicine
PROC: 5A0945Z Assistance with Respiratory Ventilation, 24-96 Consecutive Hours (ICD-10-PCS; principal; 2017-11-02)
DX: J44.1 Chronic obstructive pulmonary disease with (acute) exacerbation (principal); J96.91 Respiratory failure, unspecified with hypoxia; M40.203 Unspecified kyphosis, cervicothoracic region; R19.7 Diarrhea, unspecified; Z72.0 Tobacco use; M81.0 Age-related osteoporosis without current pathological fracture